=== PATIENT | female | born 1950 | race Caucasian/White ===

== ENCOUNTER 2016-12-21 14:03 | Inpatient (IN) | payer OTHER ==
[~2016-12-21] VITALS: Ht 157.5 cm; Wt 34.8 kg
[~2016-12-21 14:03] MED LIST: ABILIFY5 MG PO; ADVAIR HFA120 INHALA IH; AZITHROMYCIN500 M1 PO; Advair HFA 115/21 IH; BUSPAR10 MG PO; CALCIUM 500 +1 EACH PO; CALCIUM 600 +1 EAC7 PO; CIPRO500 MG PO; CIPROFLOXACIN500 M1 PO; COMBIVENT RESPIM4 GM IH; COMPOUND CREAM TP; CYMBALTA20 MG PO; DuoNeb IH; ESCITALOPRAM OX20 MG PO; FLAGYL500 MG PO; FLOXIN OTIC SOLN5 ML BOTH EARS; FOLIC ACID1 MG PO; GABAPENTIN100 MG PO; HYDROCODON-ACE1 EAC7 PO; Habitrol,Nicoderm CQ TD; IBUPROFEN800 MG PO; K-DUR20 MEQ PO; K-Dur PO; LEXAPRO20 MG PO; LOPRESSOR25 MG PO; LUNESTA3 MG PO; Levaquin PO; Lovenox SC; MACRODANTIN100 MG PO; MUCINEX600 MG PO; NICOTINE PATCH1 EAC1 TD; Neurontin PO; Oscal 500 w/Vitamin PO; PREVACID SOLUTA30 MG PO; REMERON15 M1 PO; REMERON15 M2 PO; RYBIX ODT50 MG PO; SEROQUEL12.5 MG PO; SEROQUEL50 MG PO; SPIRIVA RESPIMAT4 GM IH; SPIRIVA1 INHALATI IH; Senokot S,Pericolace PO; Solu-MEDROL PO; THERAGRAN1 TABLET PO; TRAMADOL HCL50 MG PO; TYLENOL REGULA325 MG PO; TYLENOL WITH C1 EACH PO; Ultram PO; VENTOLIN HFA18 GM IH; VIIBRYD10 MG PO; VIIBRYD20 MG PO; VIIBRYD40 MG PO; VISTARIL25 MG PO; VITAMIN B-1100 MG PO; VITAMIN D250000 UNIT PO; Vicodin,Norco 5/325 PO; Viibryd PO; Vitamin D, Drisdol PO; ZOLOFT25 MG PO
[2016-12-21 15:09] LABS: HEMATOCRIT 42.6 % (36.0-46.0); MCH 34.5 PG (29.0-34.0); MCHC 33.8 G/DL (30.0-36.0); MCV 102.2 FL (83-99); MEAN PLAT.VOLUME 11.2 uM^3 (9.5-12.4); PLATELET COUNT 161 K/uL (156-360); RBC DIS.WIDTH-CV 12.9 % (11.8-14.6); RBC DIS.WIDTH-SD 48.8 % (39-53); RED BLOOD COUNT 4.17 M/uL (3.80-5.20); WHITE BLOOD COUNT 13.5 K/uL (4.1-10.2)
[2016-12-21 15:18] LABS: CHLORIDE 107 mEq/L (99-109); POTASSIUM 3.2 mEq/L (3.7-5.4); SODIUM 142 mEq/L (136-147)
[2016-12-21 15:19] LABS: GLUCOSE 84 mg/dL (70-99)
[2016-12-21 15:21] LABS: ANION GAP 11 MEQ/L (2-14)
[2016-12-21 15:23] LABS: GFR ESTIMATE (CALCULATED) > 59 mL/min/
[2016-12-21 15:24] LABS: UREA NITROGEN (BUN) 19 mg/dL (9-23)
[2016-12-21] MEDS ORDERED: FOLIC ACID1 MG PO (17:53)
[2016-12-21] MEDS ORDERED: ADVAIR 250/501 DISK IH (17:53)
[2016-12-21] MEDS ORDERED: DURAGESIC25 MCG TD (17:54)
[2016-12-21] MEDS ORDERED: ENDOCET 5-3251 EACH PO (17:54)
[2016-12-21] MEDS ORDERED: NEURONTIN100 MG PO (17:55)
[2016-12-21] MEDS ORDERED: MIRTAZAPINE15 MG PO (17:55)
[2016-12-21] MEDS ORDERED: TRAMADOL HCL50 MG PO (17:56)
[2016-12-21] MEDS ORDERED: ALENDRONATE SOD10 MG PO (17:56)
[2016-12-21 19:33] LABS: ADD MIUA? YES; BILIRUBIN NEGATIVE; BLOOD LARGE; COLOR YELLOW ((YELLOW)); GLUCOSE (STRIP) NEGATIVE; KETONES NEGATIVE; LEUKOCYTES LARGE; NITRITE NEGATIVE; PROTEIN (STRIP) 100; SPECIFIC GRAVITY 1.015 (1.000-1.030); UROBILINOGEN 0.2 MG/DL (0.2-1.0)
[2016-12-21 20:21] LABS: BACTERIA 2+ /HPF; EPITHELIAL CELLS 1+ /HPF; MUCUS TRACE /LPF; RED BLOOD CELLS TNTC /HPF (0-5); UCUL ADDED? YES; WHITE BLOOD CELLS TNTC /HPF (0-5)
[2016-12-21 20:28] VITALS: BP 143/81
[2016-12-21 23:48] VITALS: BP 147/84
[2016-12-22 04:08] VITALS: BP 138/74
[2016-12-22 06:31] LABS: ALKALINE PHOSPHATASE 70 IU/L (3-129); ANION GAP 4 MEQ/L (2-14); CHLORIDE 111 MEQ/L (99-109); GFR ESTIMATE (CALCULATED) > 59 mL/min/; GLUCOSE 77 mg/dL (70-99); SAMPLE HEMOLYSIS CHECK 0; SAMPLE ICTERIC CHECK 0; SAMPLE LIPEMIA CHECK 0; SODIUM 141 MEQ/L (136-147); TOTAL BILIRUBIN 0.6 MG/DL (0.0-1.0); UREA NITROGEN (BUN) 17 mg/dL (9-23)
[2016-12-22 06:32] LABS: POTASSIUM 4.3 MEQ/L (3.7-5.4)
[2016-12-22 07:41] VITALS: BP 148/71
[2016-12-22 11:17] VITALS: BP 142/83
[2016-12-22 13:49] LABS: HDL CHOLESTEROL 48 MG/DL (Desirable>=50); LDL CHOLESTEROL 65 mg/dL (Desirable<100); NON-HDL CHOLESTEROL 84 mg/dL (Desirable<160); TOTAL CHOLESTEROL 132 mg/dL (Desirable<200); TRIGLYCERIDES 93 MG/DL (Normal: <150)
[2016-12-22 14:26] VITALS: BP 113/75
[2016-12-22 14:43] LABS: Estimated Average Glucose 100 mg/dL (70-123); HEMOGLOBIN A1c (GLYCOHEMOGLOB) 5.1 % HGB (Below 5.7)
[2016-12-22 20:11] VITALS: BP 136/86
[2016-12-22 23:37] VITALS: BP 134/85
[2016-12-23 04:12] VITALS: BP 127/79
[2016-12-23 06:56] LABS: HEMATOCRIT 41.7 % (36.0-46.0); MCH 35.2 PG (29.0-34.0); MCHC 34.8 G/DL (30.0-36.0); MCV 101.2 FL (83-99); RBC DIS.WIDTH-CV 12.6 % (11.8-14.6); RBC DIS.WIDTH-SD 47.5 % (39-53); RED BLOOD COUNT 4.12 M/uL (3.80-5.20); WHITE BLOOD COUNT 5.5 K/uL (4.1-10.2)
[2016-12-23 07:17] LABS: MEAN PLAT.VOLUME 11.6 uM^3 (9.5-12.4); PLAT.SUFFICIENCY DECREASED
[2016-12-23 07:54] VITALS: BP 144/75
[2016-12-23 08:06] LABS: PLATELET COUNT 107 K/uL (156-360)
[2016-12-23 11:27] VITALS: BP 130/81
[2016-12-23 16:19] VITALS: BP 130/77
[2016-12-23 19:48] VITALS: BP 114/74
[2016-12-24 00:17] VITALS: BP 118/77
[2016-12-24 03:32] VITALS: BP 138/78
[2016-12-24 07:25] VITALS: BP 150/86
[2016-12-24] MEDS ORDERED: LEVAQUIN750 MG PO (09:07)
== END 2016-12-24 10:10 | disposition home or self-care (01) | DRG 191 ==
LOC: EME 14:03 → EDOF 18:00 → 5SOUTH 20:08
PROVIDERS: Internal Medicine
DX: J44.0 Chronic obstructive pulmonary disease with (acute) lower respiratory infection (principal); N39.0 Urinary tract infection, site not specified; J44.1 Chronic obstructive pulmonary disease with (acute) exacerbation; F32.9 Major depressive disorder, single episode, unspecified; K21.9 Gastro-esophageal reflux disease without esophagitis; D69.6 Thrombocytopenia, unspecified; E86.0 Dehydration; F17.210 Nicotine dependence, cigarettes, uncomplicated; Z96.611 Presence of right artificial shoulder joint; G89.4 Chronic pain syndrome; R29.810 Facial weakness; Z68.1 Body mass index [BMI] 19.9 or less, adult
CPT/HCPCS: 70450; 71020; 80048; 80053; 80061; 81003; 83036; 85027; 87086; 93005; 94640; 94640 76; 99202; 99281; 99285; J0744; J1650; J1956; J2920; J7030

== ENCOUNTER 2017-02-18 13:31 | Inpatient (IN) | payer OTHER ==
[~2017-02-18] VITALS: Ht 154.9 cm; Wt 31.1 kg
[~2017-02-18 13:31] MED LIST changes: +ADVAIR 250/501 DISK IH; +ALENDRONATE SOD10 MG PO; +DURAGESIC25 MCG TD; +ENDOCET 5-3251 EACH PO; +LEVAQUIN750 MG PO; +MIRTAZAPINE15 MG PO; +NEURONTIN100 MG PO
[2017-02-18 14:45] LABS: HEMATOCRIT 38.5 % (36.0-46.0); MCH 34.6 PG (29.0-34.0); MCHC 34.3 G/DL (30.0-36.0); MCV 100.8 FL (83-99); PLATELET COUNT 141 K/uL (156-360); RBC DIS.WIDTH-CV 13.3 % (11.8-14.6); RBC DIS.WIDTH-SD 49.1 % (39-53); RED BLOOD COUNT 3.82 M/uL (3.80-5.20); WHITE BLOOD COUNT 7.4 K/uL (4.1-10.2)
[2017-02-18 14:52] LABS: INTER. NORMALIZED RATIO 1.1; PROTHROMBIN TIME 11.7 SEC (10.2-12.9)
[2017-02-18 14:54] LABS: CHLORIDE 108 mEq/L (99-109); POTASSIUM 3.5 mEq/L (3.7-5.4); PTT 29.1 SEC (25-37); SODIUM 143 mEq/L (136-147)
[2017-02-18 14:55] LABS: GLUCOSE 99 mg/dL (70-99)
[2017-02-18 14:57] LABS: ANION GAP 13 MEQ/L (2-14)
[2017-02-18 14:59] LABS: GFR ESTIMATE (CALCULATED) > 59 mL/min/
[2017-02-18 15:00] LABS: UREA NITROGEN (BUN) 16 mg/dL (9-23)
[2017-02-18 15:05] LABS: TROP-I INTERPRETATION NEGATIVE; TROPONIN-I < 0.01 ng/mL (0.0-0.30)
[2017-02-18] MEDS ORDERED: ADVAIR 250/501 DISK IH (19:25)
[2017-02-18] MEDS ORDERED: ESCITALOPRAM OX10 MG PO (19:25)
[2017-02-18] MEDS ORDERED: PROAIR HFA8.5 GM IH (19:26)
[2017-02-18] MEDS ORDERED: FENTANYL1 EAC5 TD (19:26)
[2017-02-18] MEDS ORDERED: GABAPENTIN100 MG PO (19:28)
[2017-02-18] MEDS ORDERED: MIRTAZAPINE15 M1 PO (19:28)
[2017-02-18] MEDS ORDERED: LO-DOSE ASPIRIN81 M2 PO ×2 (19:29→19:30)
[2017-02-18] MEDS ORDERED: ULTRAM50 MG PO (19:31)
[2017-02-18 20:15] LABS: ADD MIUA? YES; BILIRUBIN NEGATIVE; BLOOD LARGE; COLOR YELLOW ((YELLOW)); GLUCOSE (STRIP) NEGATIVE; KETONES NEGATIVE; LEUKOCYTES MODERATE; NITRITE NEGATIVE; PROTEIN (STRIP) 100; SPECIFIC GRAVITY 1.021 (1.000-1.030); UROBILINOGEN 0.2 MG/DL (0.2-1.0)
[2017-02-18 20:40] LABS: BACTERIA 1+ /HPF; CASTS NONE SEEN /LPF; CRYSTALS NONE SEEN; EPITHELIAL CELLS 1+ /HPF; MUCUS RARE /LPF; RED BLOOD CELLS TNTC /HPF (0-5); UCUL ADDED? YES; WHITE BLOOD CELLS TNTC /HPF (0-5)
[2017-02-18 21:57] VITALS: BP 107/67
[2017-02-19 03:25] VITALS: BP 117/74
[2017-02-19 07:30] VITALS: BP 122/74
[2017-02-19 09:28] LABS: TROP-I INTERPRETATION NEGATIVE; TROPONIN-I < 0.01 ng/mL (0.0-0.30)
[2017-02-19 11:09] VITALS: BP 118/58
[2017-02-19 15:53] VITALS: BP 111/68
[2017-02-19 16:22] LABS: TROP-I INTERPRETATION NEGATIVE; TROPONIN-I < 0.01 ng/mL (0.0-0.30)
[2017-02-20 00:27] VITALS: BP 143/68
[2017-02-20 01:23] LABS: TROP-I INTERPRETATION NEGATIVE; TROPONIN-I < 0.01 ng/mL (0.0-0.30)
[2017-02-20 04:24] VITALS: BP 138/94
[2017-02-20 07:28] VITALS: BP 121/66
[2017-02-20] MEDS ORDERED: PERCOCET 5/31 TABLET PO (15:20)
== END 2017-02-20 16:23 | disposition home health service (06) | DRG 563 ==
LOC: EME → EDBD 13:31 → 3EAST 18:57 → EDOF 18:57 → ENRESERV 18:58 → 3EAST 21:30
PROVIDERS: Emergency Medicine; Internal Medicine
DX: S42.031A Displaced fracture of lateral end of right clavicle, initial encounter for closed fracture (principal); I48.91 Unspecified atrial fibrillation; J44.9 Chronic obstructive pulmonary disease, unspecified; Z86.19 Personal history of other infectious and parasitic diseases; R94.31 Abnormal electrocardiogram [ECG] [EKG]; F32.9 Major depressive disorder, single episode, unspecified; W19.XXXA Unspecified fall, initial encounter; Y92.9 Unspecified place or not applicable; F17.210 Nicotine dependence, cigarettes, uncomplicated; F41.9 Anxiety disorder, unspecified; F10.10 Alcohol abuse, uncomplicated; F12.90 Cannabis use, unspecified, uncomplicated; I25.2 Old myocardial infarction; Z87.11 Personal history of peptic ulcer disease; Z68.1 Body mass index [BMI] 19.9 or less, adult; G89.4 Chronic pain syndrome; M19.90 Unspecified osteoarthritis, unspecified site; Z87.442 Personal history of urinary calculi
CPT/HCPCS: 70450; 71020; 72125; 73030; 73060; 80048; 81003; 84484; 85027; 85610; 85730; 87086; 93005; 94640; 94640 76; 94760; 99202; 99281; 99285; J1650; J2270; J7030

== ENCOUNTER 2017-03-15 15:37 | Emergency (ER) | payer OTHER ==
[~2017-03-15] VITALS: Ht 154.9 cm; Wt 33.7 kg
[~2017-03-15 15:37] MED LIST changes: +ESCITALOPRAM OX10 MG PO; +FENTANYL1 EAC5 TD; +LO-DOSE ASPIRIN81 M2 PO; +MIRTAZAPINE15 M1 PO; +PERCOCET 5/31 TABLET PO; +PROAIR HFA8.5 GM IH; +ULTRAM50 MG PO
[2017-03-15 17:45] LABS: HEMATOCRIT 43.8 % (36.0-46.0); MCH 34.3 PG (29.0-34.0); MCHC 33.3 G/DL (30.0-36.0); MCV 102.8 FL (83-99); MEAN PLAT.VOLUME 11.1 uM^3 (9.5-12.4); PLATELET COUNT 211 K/uL (156-360); RBC DIS.WIDTH-CV 14.4 % (11.8-14.6); RBC DIS.WIDTH-SD 54.3 % (39-53); RED BLOOD COUNT 4.26 M/uL (3.80-5.20); WHITE BLOOD COUNT 6.3 K/uL (4.1-10.2)
[2017-03-15 17:51] LABS: CHLORIDE 109 mEq/L (99-109); POTASSIUM 4.1 mEq/L (3.7-5.4); SODIUM 141 mEq/L (136-147)
[2017-03-15 17:53] LABS: GLUCOSE 85 mg/dL (70-99)
[2017-03-15 17:54] LABS: ANION GAP 13 MEQ/L (2-14)
[2017-03-15 17:57] LABS: GFR ESTIMATE (CALCULATED) > 59 mL/min/
[2017-03-15 17:58] LABS: UREA NITROGEN (BUN) 18 mg/dL (9-23)
[2017-03-15 18:00] LABS: LIPASE 22 U/L (1.0-51.0)
[2017-03-15] MEDS ORDERED: ZOFRAN4 MG PO (19:55)
[2017-03-15 20:30] VITALS: BP 142/99
[2017-03-16] MEDS ORDERED: LIBRIUM25 MG PO (16:51)
== END 2017-03-15 20:40 | disposition home or self-care (01) ==
LOC: EME 15:37
PROVIDERS: Emergency Medicine
DX: K29.70 Gastritis, unspecified, without bleeding (principal); Z87.442 Personal history of urinary calculi; F41.9 Anxiety disorder, unspecified; F32.9 Major depressive disorder, single episode, unspecified; Z86.73 Personal history of transient ischemic attack (TIA), and cerebral infarction without residual deficits; Z96.649 Presence of unspecified artificial hip joint; Z79.82 Long term (current) use of aspirin; Z88.0 Allergy status to penicillin; F17.200 Nicotine dependence, unspecified, uncomplicated
CPT/HCPCS: 74176; 80048; 83690; 85027; 99281; 99285; J2270; J2405; J7030

== ENCOUNTER 2017-03-16 13:53 | Emergency (ER) | payer OTHER ==
[~2017-03-16] VITALS: Ht 154.9 cm; Wt 31.5 kg
[~2017-03-16 13:53] MED LIST changes: +ZOFRAN4 MG PO
[2017-03-16] MEDS ORDERED: LIBRIUM25 MG PO (16:51)
[2017-03-16 17:30] VITALS: BP 147/94
== END 2017-03-16 17:30 | disposition home or self-care (01) ==
LOC: EME 13:53
DX: K29.20 Alcoholic gastritis without bleeding (principal); F10.239 Alcohol dependence with withdrawal, unspecified; Z87.442 Personal history of urinary calculi; Z79.82 Long term (current) use of aspirin; J44.9 Chronic obstructive pulmonary disease, unspecified; F17.200 Nicotine dependence, unspecified, uncomplicated
CPT/HCPCS: 99281; 99285

== ENCOUNTER 2017-11-15 18:58 | Inpatient (IN) | payer OTHER ==
[~2017-11-15] VITALS: Ht 154.9 cm; Wt 62.8 kg
[~2017-11-15 18:58] MED LIST changes: +LIBRIUM25 MG PO
[2017-11-15 20:49] LABS: BASOPHIL (%) 0.5 % (0-1); EOSINOPHIL (%) 2.4 % (0-5); EOSINOPHIL COUNT 0.2 K/uL (0-0.3); HEMATOCRIT 41.6 % (36.0-46.0); HEMOGLOBIN 14.4 G/DL (11.9-15.5); IMMATURE GRANULOCYTE (%) 0.2 % (0.0-0.7); LYMPHOCYTE (%) 45.9 % (15-42); LYMPHOCYTE COUNT 2.8 K/uL (1.0-2.8); MCHC 34.6 G/DL (30.0-36.0); MONOCYTE (%) 8.1 % (3-12); MONOCYTE COUNT 0.5 K/uL (0-0.8); NEUTROPHIL (%) 42.9 % (45-76); NEUTROPHIL COUNT 2.6 K/uL (1.8-6.4); PLATELET COUNT 143 K/uL (156-360); RBC DIS.WIDTH-CV 12.8 % (11.8-14.6); RBC DIS.WIDTH-SD 49.4 % (39-53); WHITE BLOOD COUNT 6.2 K/uL (4.1-10.2)
[2017-11-15 21:02] LABS: CHLORIDE 106 mEq/L (99-109); POTASSIUM 3.6 mEq/L (3.7-5.4); SODIUM 140 mEq/L (136-147)
[2017-11-15 21:05] LABS: GLUCOSE 87 mg/dL (70-99); TOTAL PROTEIN 6.9 g/dL (6.4-8.3)
[2017-11-15 21:07] LABS: TOTAL BILIRUBIN 0.7 mg/dL (0.0-1.0)
[2017-11-15 21:08] LABS: ALKALINE PHOSPHATASE 67 IU/L (3-129); CREATININE 0.8 mg/dL (0.6-1.3); GFR ESTIMATE (CALCULATED) > 59 mL/min/
[2017-11-15 21:10] LABS: AST (GOT) 42 IU/L (2-34); UREA NITROGEN (BUN) 19 mg/dL (9-23)
[2017-11-15 21:11] LABS: ALT (GPT) 20 IU/L (3-49)
[2017-11-15 21:26] LABS: APPEARANCE SL.HAZY ((CLEAR)); BILIRUBIN NEGATIVE; BLOOD MODERATE; COLOR YELLOW ((YELLOW)); GLUCOSE (STRIP) NEGATIVE; KETONES NEGATIVE; LEUKOCYTES LARGE; NITRITE POSITIVE; PROTEIN (STRIP) 30; SPECIFIC GRAVITY 1.017 (1.000-1.030); UROBILINOGEN 0.2 MG/DL (0.2-1.0)
[2017-11-15 21:53] LABS: BACTERIA 3+ /HPF; EPITHELIAL CELLS RARE /HPF; HYALINE CASTS 0-5 /LPF; MUCUS TRACE /LPF; UCUL ADDED? YES; WHITE BLOOD CELLS TNTC /HPF (0-5)
[2017-11-16 03:21] VITALS: BP 101/54
[2017-11-16 05:05] LABS: BASOPHIL (%) 0.3 % (0-1); EOSINOPHIL (%) 0.8 % (0-5); HEMATOCRIT 40.2 % (36.0-46.0); HEMOGLOBIN 13.2 G/DL (11.9-15.5); IMMATURE GRANULOCYTE (%) 0.3 % (0.0-0.7); LYMPHOCYTE (%) 38.9 % (15-42); LYMPHOCYTE COUNT 1.5 K/uL (1.0-2.8); MCH 34.8 PG (29.0-34.0); MCHC 32.8 G/DL (30.0-36.0); MCV 106.1 FL (83-99); MONOCYTE (%) 4.3 % (3-12); MONOCYTE COUNT 0.2 K/uL (0-0.8); NEUTROPHIL (%) 55.4 % (45-76); NEUTROPHIL COUNT 2.2 K/uL (1.8-6.4); PLATELET COUNT 133 K/uL (156-360); RBC DIS.WIDTH-CV 12.9 % (11.8-14.6); RBC DIS.WIDTH-SD 50.5 % (39-53); RED BLOOD COUNT 3.79 M/uL (3.80-5.20)
[2017-11-16 05:58] LABS: ALBUMIN 3.3 G/DL (3.2-4.8); ALKALINE PHOSPHATASE 52 IU/L (3-129); ALT (GPT) 19 IU/L (3-49); AST (GOT) 40 IU/L (2-34); CHLORIDE 114 MEQ/L (99-109); CREATININE 0.7 MG/DL (0.6-1.3); GFR ESTIMATE (CALCULATED) > 59 mL/min/; POTASSIUM 3.7 MEQ/L (3.7-5.4); SODIUM 142 MEQ/L (136-147); TOTAL BILIRUBIN 0.4 MG/DL (0.0-1.0); TOTAL PROTEIN 5.5 G/DL (6.4-8.3); UREA NITROGEN (BUN) 18 mg/dL (9-23)
[2017-11-16 06:06] LABS: GLUCOSE 139 mg/dL (70-99)
[2017-11-16 07:35] VITALS: BP 116/62
[2017-11-16 11:00] VITALS: BP 116/67
[2017-11-16 14:21] LABS: BENZODIAZEPINES, URINE SCREEN Negative (200 ng/mL)
[2017-11-16 15:20] VITALS: BP 113/63
[2017-11-16 20:10] VITALS: BP 100/60
[2017-11-17 00:25] VITALS: BP 116/75
[2017-11-17 04:19] VITALS: BP 134/82
[2017-11-17 07:14] VITALS: BP 140/67
[2017-11-17 11:28] VITALS: BP 138/70
[2017-11-17] MEDS ORDERED: LEVO-T50 MCG PO (12:25)
[2017-11-17] MEDS ORDERED: ALENDRONATE SOD10 MG PO (12:25)
[2017-11-17] MEDS ORDERED: PERCOCET 10/1 TABLET PO (12:25)
[2017-11-17] MEDS ORDERED: NEURONTIN600 MG PO (12:27)
[2017-11-17] MEDS ORDERED: MIRTAZAPINE15 M1 PO (12:28)
[2017-11-17] MEDS ORDERED: VENTOLIN HFA18 GM IH (12:28)
[2017-11-17] MEDS ORDERED: LEXAPRO20 MG PO (12:28)
[2017-11-17] MEDS ORDERED: BREO ELLIPTA I1 EACH IH (12:29)
== END 2017-11-17 13:34 | disposition home or self-care (01) | DRG 918 ==
LOC: EME → EDBD 18:58 → EDOF 23:50 → 5EAST 23:50 → ENRESERV 11-16 00:18 → 5EAST 11-16 02:10
PROVIDERS: Emergency Medicine; Internal Medicine
DX: T40.2X1A Poisoning by other opioids, accidental (unintentional), initial encounter (principal); R41.82 Altered mental status, unspecified; R82.71 Bacteriuria; R31.21 Asymptomatic microscopic hematuria; G43.909 Migraine, unspecified, not intractable, without status migrainosus; F32.9 Major depressive disorder, single episode, unspecified; F41.9 Anxiety disorder, unspecified; G89.4 Chronic pain syndrome; M79.7 Fibromyalgia; M54.9 Dorsalgia, unspecified; F12.90 Cannabis use, unspecified, uncomplicated; J44.9 Chronic obstructive pulmonary disease, unspecified; F17.200 Nicotine dependence, unspecified, uncomplicated; Z96.642 Presence of left artificial hip joint; Z79.82 Long term (current) use of aspirin; Z79.891 Long term (current) use of opiate analgesic; Z88.0 Allergy status to penicillin; Z88.2 Allergy status to sulfonamides; Z86.73 Personal history of transient ischemic attack (TIA), and cerebral infarction without residual deficits; Z87.11 Personal history of peptic ulcer disease
CPT/HCPCS: 71045; 80053; 80306 90; 81003; 83605; 85025; 87040; 87077; 87086 GA; 87186; 93005; 94799; 99202; 99281; 99285; J0696; J1650; J2310; J2405; J2920; J7030